=== PATIENT | male | born 1990 | race African-American/Black ===

== ENCOUNTER 2020-04-18 10:08 | Emergency (ER) | payer OTHER ==
[~2020-04-18] VITALS: Ht 175.3 cm; Wt 95.3 kg
[2020-04-18] MEDS ORDERED: CLARITIN10 MG PO (11:27)
[2020-04-18] MEDS ORDERED: PREDNISONE 20 M20 MG PO (11:27)
[2020-04-18] MEDS ORDERED: AUGMENTIN 875-1 EACH PO (11:28)
[2020-04-18 11:31] VITALS: BP 120/76
== END 2020-04-18 11:30 | disposition home or self-care (01) ==
LOC: ER 10:08
DX: J30.2 Other seasonal allergic rhinitis (principal); R09.81 Nasal congestion; J34.89 Other specified disorders of nose and nasal sinuses; R09.3 Abnormal sputum; F17.210 Nicotine dependence, cigarettes, uncomplicated; Z91.018 Allergy to other foods

== ENCOUNTER 2020-09-10 05:24 | Emergency (ER) | payer OTHER ==
[~2020-09-10] VITALS: Ht 172.7 cm; Wt 72.6 kg
[~2020-09-10 05:24] MED LIST: AUGMENTIN 875-1 EACH PO; CLARITIN10 MG PO; PREDNISONE 20 M20 MG PO
[2020-09-10] MEDS ORDERED: PROAIR HFA8.5 GM INH (05:59)
[2020-09-10] MEDS ORDERED: PREDNISONE50 MG PO (05:59)
[2020-09-10 06:33] VITALS: BP 118/70
[2020-09-11] MEDS ORDERED: PROAIR HFA8.5 GM INH ×2 (08:46→08:47)
== END 2020-09-10 06:34 | disposition home or self-care (01) ==
LOC: ER 05:24
DX: U07.1 COVID-19 (principal); B34.9 Viral infection, unspecified; J45.909 Unspecified asthma, uncomplicated; F17.210 Nicotine dependence, cigarettes, uncomplicated; Z88.0 Allergy status to penicillin